=== PATIENT | female | born 1960 | race Caucasian/White ===

== ENCOUNTER 2018-02-14 13:21 | Inpatient (IN) | payer MEDICARE, OTHER ==
[~2018-02-14] VITALS: Ht 170.2 cm; Wt 73.0 kg
--- NOTE | 2018-02-14 14:30 | NUR ---
RN NOTE: PATIENT ARRIVED IN THE UNIT AT 1345. PATIENT CAME FROM [facility]. PATIENT ADMITTED HERE FOR PSYCHOSIS. PATIENT STATES SHE IS HOPELESS AND DEPRESSED, BUT DOES NOT HAVE SI/HI. PATIENT'S BELONGINGS WERE LOGGED AND IN CHART. PATIENT SIGNED ADMISSION PAPERS. SKIN ASSESSMENT COMPLETE AND CLEAR. PSYCHIATRIST NOTIFIED AND ORDERS IN. VICE PRESIDENT NETWORK NOTIFIED OF MEDICATION RECON. PATIENT ORIENTED TO UNIT POLICY AND PROCEDURES.
[2018-02-14] MEDS ORDERED: MAGNESIUM HYDROXIDE 30 ML UDC PO PRN (15:00)
[2018-02-14] MEDS ORDERED: TEMAZEPAM 7.5 MG CAPSULE PO PRN (15:00)
[2018-02-14] MEDS ORDERED: MAG HYDROX/AL HYDROX/SIMETH 30 ML UDC PO PRN (15:00)
[2018-02-14 16:00] VITALS: BP 134/70
[2018-02-14] MEDS ORDERED: MELO-107 PO (17:37)
[2018-02-14] MEDS ORDERED: QUET200T PO (17:37)
[2018-02-14] MEDS ORDERED: HYDR50CA5 PO (17:37)
[2018-02-14] MEDS ORDERED: DIVA-78 PO (17:37)
[2018-02-14] MEDS ORDERED: BUSP15TA3 PO (17:37)
[2018-02-14 20:16] VITALS: BP 86/54
[2018-02-14] MEDS ORDERED: ALBUTEROL FS 2.5 MG/3 ML VIAL.NEB NEB PRN (21:30)
[2018-02-14] MEDS ORDERED: IPRATROPIUM NEB FS 0.5 MG/2.5 ML AMPUL.NEB NEB PRN (21:30)
[2018-02-14] MEDS: LORAZEPAM 0.5 MG TABLET PO PRN (22:02)
[2018-02-14 23:00] VITALS: BP 105/65
[2018-02-15 08:00] VITALS: BP 112/77
[2018-02-15] MEDS: LORAZEPAM 0.5 MG TABLET PO PRN (09:58)
--- NOTE | 2018-02-15 09:58 | NUR ---
RN NOTES ADMINISTERED ATIVAN 0.5 MG PO PRN FOR ANXIETY, PARANOIA, V/S TAKEN STABLE BP- 112/77, P-71, CONTINUED MONITORING.
[2018-02-15] MEDS: DIVALPROEX SODIUM 500 MG TABLET.DR PO SCH ×2 (10:54→21:02)
[2018-02-15 11:02] LABS: ALBUMIN 3.4 g/dL (3.4-5.0); BILIRUBIN,TOTAL 0.4 mg/dL (0.2-1.0); CALCIUM, SERUM 9.2 mg/dL (8.5-10.1); CREATININE 0.8 mg/dL (0.6-1.3); POTASSIUM 4.7 mmol/L (3.5-5.1); TOTAL PROTEIN, SERUM 7.1 g/dL (6.4-8.2)
[2018-02-15 11:16] LABS: CHOLESTEROL 243 mg/dL (<200); HDL CHOLESTEROL 81 mg/dL (40-60); LDL 135 mg/dL (0-99); TRIGLYCERIDES 192 mg/dL (30-150)
--- NOTE | 2018-02-15 15:51 | NUR ---
BOB called the pt's sister, Kahty ([phone]), and was unable to leave a message on her voicemail.
--- NOTE | 2018-02-15 15:51 | NUR ---
Initial Discharge Plan: Pt is currently homeless but stated that she wants to go live with her sister, Kathy ([phone]), in [place] after she is discharged. SW will work with the pt and the MD regarding appropriate discharge planning. SW will form a safe and proper discharge.
[2018-02-15 16:00] VITALS: BP 111/82
[2018-02-15] MEDS: clonazePAM 0.5 MG TABLET PO PRN (16:02)
--- NOTE | 2018-02-15 16:02 | NUR ---
RN NOTES ADMINISTERED KLONOPIN 0.5 MG PO PRN FOR ANXIETY, AND TYLENOL 650 MG PO PRN FOR LOWER BACK PAIN 11/10, PER PATIENT REQUEST BP - 132/79, P-78, CONTINUED MONITORING.
[2018-02-15 20:02] VITALS: BP 85/54
[2018-02-15] MEDS: MIRTAZAPINE 15 MG TABLET PO SCH (21:02)
[2018-02-15] MEDS: QUETIAPINE FUMARATE 100 MG TABLET PO SCH (21:02)
[2018-02-15 22:30] VITALS: BP 108/67
[2018-02-16] MEDS: DIVALPROEX SODIUM 500 MG TABLET.DR PO SCH ×2 (08:54→21:31)
[2018-02-16] MEDS: clonazePAM 0.5 MG TABLET PO PRN (09:09)
--- NOTE | 2018-02-16 09:10 | NUR ---
GPS/RN-NOTES PATIENT REQUESTING FOR KLONOPIN, STATED" I NEED FOR MY ANXIETY. KLONOPIN 0.5MG P.O GIVEN PRN ORDER. WILL CONT. MONITORING FOR SAFETY AND BEHAVIOR.
--- NOTE | 2018-02-16 10:10 | NUR ---
GPS/RN-NOTES PATIENT IN THE DAY ROOM PARTICIPATING IN THE ACTIVITY GROUP,CALM AND COOPERATIVE. NO ACUTE DISTRESS NOTED.
[2018-02-16 16:17] VITALS: BP 97/55
[2018-02-16 20:00] VITALS: BP 105/72
[2018-02-16] MEDS: QUETIAPINE FUMARATE 100 MG TABLET PO SCH (21:31)
[2018-02-16] MEDS: MIRTAZAPINE 15 MG TABLET PO SCH (21:31)
--- NOTE | 2018-02-17 06:21 | NUR ---
GPS/RN PATIENT STILL SLEEPING AT THIS TIME, APPEAR CALM AND COMFORTABLE, BREATHING EVEN AND UNLABORED, ALL NEEDS ATTENDED AT THIS TIME. WILL CONTINUE TO MONITOR.
[2018-02-17 08:00] VITALS: BP 99/69
[2018-02-17] MEDS: DIVALPROEX SODIUM 500 MG TABLET.DR PO SCH ×2 (08:43→21:48)
[2018-02-17] MEDS: clonazePAM 0.5 MG TABLET PO PRN ×2 (08:52→14:11)
[2018-02-17] MEDS: ACETAMINOPHEN 325 MG TABLET PO PRN (08:52)
--- NOTE | 2018-02-17 08:52 | NUR ---
RN NOTES ADMINISTERED KLONOPIN 0.5 MG PO PRN FOR ANXIETY, AND TYLENOL 650 MG PO PRN FOR NECK PAIN 11/10 PER PATIENT REQUEST, V/S TAKEN BP-100/69, P-61, CONTINUED MONITORING.
--- NOTE | 2018-02-17 14:11 | NUR ---
RN NOTES ADMINISTERED KLONOPIN 0.5 MG PO PRN FOR ANXIETY, YELLING, V/S TAKEN STABLE BP- 100,67, P-78, CONTINUED MONITORING.
[2018-02-17 16:00] VITALS: BP 100/59
[2018-02-17] MEDS ORDERED: ZOLPIDEM TARTRATE 5 MG TABLET PO PRN (17:00)
[2018-02-17 20:00] VITALS: BP 106/49
[2018-02-17] MEDS: MIRTAZAPINE 15 MG TABLET PO SCH (21:48)
[2018-02-17] MEDS: QUETIAPINE FUMARATE 100 MG TABLET PO SCH (21:49)
[2018-02-18 08:00] VITALS: BP 100/59
[2018-02-18] MEDS: DIVALPROEX SODIUM 500 MG TABLET.DR PO SCH ×2 (08:19→20:18)
[2018-02-18] MEDS: clonazePAM 0.5 MG TABLET PO PRN ×2 (09:00→15:25)
--- NOTE | 2018-02-18 09:00 | NUR ---
GPS RN NOTE: RECEIVED PATIENT IN THE ROOM SHOWERED TODAY COMPLIANT WITH MEDICATIONS AT THIS TIME, FEELING ANXIOUS KLONOPIN 0.5 MG PO PRN GIVE,ALL NEEDS ATTENDED AND ANTICIPATED. WILL CONT. MONITORING Q15 MINS. FOR SAFETY AND BEHAVIOR. .
[2018-02-18 16:00] VITALS: BP 100/59
[2018-02-18 20:00] VITALS: BP 97/58
[2018-02-18] MEDS: ACETAMINOPHEN 325 MG TABLET PO PRN (20:18)
[2018-02-18] MEDS: QUETIAPINE FUMARATE 100 MG TABLET PO SCH (21:15)
[2018-02-18] MEDS: MIRTAZAPINE 15 MG TABLET PO SCH (21:15)
[2018-02-19 08:00] VITALS: BP 106/57
[2018-02-19] MEDS: DIVALPROEX SODIUM 500 MG TABLET.DR PO SCH ×2 (08:04→21:02)
[2018-02-19] MEDS: clonazePAM 0.5 MG TABLET PO PRN ×2 (08:08→14:21)
[2018-02-19] MEDS: ACETAMINOPHEN 325 MG TABLET PO PRN (08:09)
[2018-02-19 16:00] VITALS: BP 100/71
[2018-02-19 19:54] VITALS: BP 103/58
[2018-02-19] MEDS: MIRTAZAPINE 15 MG TABLET PO SCH (21:02)
[2018-02-19] MEDS: QUETIAPINE FUMARATE 100 MG TABLET PO SCH (21:02)
[2018-02-19 23:00] VITALS: BP 106/64
[2018-02-20] MEDS: clonazePAM 0.5 MG TABLET PO PRN ×3 (00:22→15:04)
[2018-02-20 08:00] VITALS: BP 92/58
--- NOTE | 2018-02-20 08:30 | NUR ---
GPS/RN PATIENT REPORTS BEING ANXIOUS AND RESTLESS, ADMINISTERED KLONOPIN 0.5 MG PER PATIENT REQUEST. WILL CONTINUE TO MONITOR.
[2018-02-20] MEDS: DIVALPROEX SODIUM 500 MG TABLET.DR PO SCH ×2 (08:31→21:34)
--- NOTE | 2018-02-20 15:04 | NUR ---
GPS/RN PATIENT REPORTS BEING ANXIOUS AND RESTLESS, ADMINISTERED KLONOPIN 0.5 MG PER PATIENT REQUEST. WILL CONTINUE TO MONITOR.
[2018-02-20 16:00] VITALS: BP 104/71
[2018-02-20 20:52] VITALS: BP 98/60
[2018-02-20] MEDS: MIRTAZAPINE 15 MG TABLET PO SCH (21:33)
[2018-02-20] MEDS: QUETIAPINE FUMARATE 100 MG TABLET PO SCH (21:33)
[2018-02-21 08:00] VITALS: BP 90/57
[2018-02-21] MEDS: DIVALPROEX SODIUM 500 MG TABLET.DR PO SCH (08:58)
[2018-02-21] MEDS: clonazePAM 0.5 MG TABLET PO PRN (09:04)
--- NOTE | 2018-02-21 09:04 | NUR ---
[id number]: GAVE KLONOPIN 1 MG PO DUE TO INCREASED ANXIETY UPON PT REQUEST AND WILL CONTINUE TO MONITOR FOR EFFECTIVENESS OF MEDICATION
--- NOTE | 2018-02-21 11:50 | NUR ---
[id number]: PT IS 57 YEARS OLD FEMALE DISCHARGE TO [facility] LOCATED AT [address] [place] [address]. [id number] IN STABLE CONDITION. COMPLIANT WITH MEDICATIONS, COOPERATIVE WITH TREATMENT PLANS. PT DENIES SI/HI AND INSTRUCTED TO GO TO THE CLOSEST ER IF DEVELOPING SI/HI. BEHAVIOR IMPROVED, PSYCHIATRIC TX PLANS MET, MEDICAL TX PLANS DEFERRED FOR CONTINUAL MONITORING. EDUCATED PT ABOUT AFTER CARE PLAN AND COPY PROVIDED. RETURNED PERSONAL BELONGINGS TO PT. MEDICATIONS RECONCILED WITH DR. MAYBERRY AND DR. RIVERA. REPORT GIVEN TO OREN AT [facility] FOR CONTINUITY OF CARE. PT SIGNED DISCHARGE PAPERWORK. SKIN ASSESSMENT DONE. PT LEFT THE UNIT VIA AMBULANCE.
--- NOTE | 2018-02-21 16:05 | NUR ---
BOB sent a referral to [facility] and Marybeth ([phone]) contacted the SW to state that she wanted to assess the pt first.
--- NOTE | 2018-02-21 16:06 | NUR ---
Marybeth ([phone]) from [facility] came to assess the pt with the SW being present.
--- NOTE | 2018-02-21 16:06 | NUR ---
BOB called Marybeth ([phone]) from [facility] and was informed that the pt was accepted to their facility and that they would bring her dog with them.
--- NOTE | 2018-02-21 16:07 | NUR ---
Discharge Note: Pt was discharged to [facility] ([facility]) located at [id number] [place] [address]; ([phone]). Pt was transported via [facility] (Trip #[id number]) at 12pm to Rm 409B. Pt did not want anyone to be contacted about her discharge and agreed to this placement because the facility stated that they would allow her dog. Upon discharge, the pt stated that she was in an uplifted mood and her affect appeared to be calm. Pt stated that she does not have any suicidal or homicidal ideation as well as auditory or visual hallucinations. Pt was provided with substance abuse referrals as well as smoking cessation referrals. Pt will be under the care of psychiatrist, Dr. Song, located at [address] [address], [place] [address]; and rn on site, Dr. Cruz, located at [address] [facility] [place] [address]; . Substance abuse referrals: [facility] [address] [place] [address] Tel. [facility] [address] [place] Provider Mental Health Treatment Tele-dermatology HIV Services Telemedicine Services [facility] [address] [place] [address] [facility] [address] [place] [address] Smoking Cessation Referrals: [facility] [id number] [facility] [phone]
== END 2018-02-21 11:50 | DRG 885 ==
LOC: GPS 13:21
PROVIDERS: ADMIT Psychiatry & Neurology Psychiatry; ATTEND Internal Medicine
DX: F31.89 Other bipolar disorder (principal); F23 Brief psychotic disorder; F10.10 Alcohol abuse, uncomplicated; F41.9 Anxiety disorder, unspecified; E78.5 Hyperlipidemia, unspecified; F17.210 Nicotine dependence, cigarettes, uncomplicated; F19.10 Other psychoactive substance abuse, uncomplicated; F25.9 Schizoaffective disorder, unspecified; Z59.0 Homelessness; Z91.5 Personal history of self-harm
CPT/HCPCS: 36415; 80053-TC; 80061-TC; 80164-TC; 87081-TC

== ENCOUNTER 2018-11-23 20:30 | Inpatient (IN) | payer MEDICARE, OTHER ==
[~2018-11-23] VITALS: Ht 170.2 cm; Wt 90.7 kg
[~2018-11-23 20:30] MED LIST: HYDR50CA5 PO; MELO-107 PO
--- NOTE | 2018-11-23 20:49 | NUR ---
PT JOSUÉ FROM [facility] FOR MEDICAL CLEARANCE. PT NOT PLACED ON HOLD. PT C/O SI, DENIES PLAN, HI, OR AUDITORY HALLUCINATIONS. PT AAOX4. RESPIRATIONS EVEN AND UNLABORED. SKIN INTACT. CALM AND COOPERATIVE. NO ACUTE DISTRESS NOTED AT THIS TIME
--- NOTE | 2018-11-23 20:50 | NUR ---
URINE COLLECTED AND SENT TO LAB
--- NOTE | 2018-11-23 20:55 | NUR ---
ER PA AT BEDSIDE FOR EVALUATION
[2018-11-23] MEDS ORDERED: HYDROCODONE/APAP 10/325MG 1 EA TABLET PO ONE (21:00)
[2018-11-23] MEDS ORDERED: HYDROCODONE/APAP 10/325MG 1 EA TABLET ONE (21:01)
--- NOTE | 2018-11-23 21:05 | NUR ---
PT ALSO C/O BILATERAL LEG PAIN. PER ER PA ORDER, WILL ADMINISTER NORCO PO X1 NOW
[2018-11-23 21:09] LABS: APPEARANCE,URINE Clear (CLEAR); BILIRUBIN,URINE Negative (NEGATIVE); BLOOD, URINE Trace-lysed Ery/uL (NEGATIVE); COLOR,URINE Yellow (YELLOW); KETONES,URINE Negative (NEGATIVE); LEUKOCYTE ESTERASE ,URINE Negative (NEGATIVE); NITRITE, URINE Negative (NEGATIVE); PH,URINE 5.5 (5.0-8.0); PROTEIN,URINE Negative (NEGATIVE); UGLUCOSE Negative (NEGATIVE); UROBILINOGEN,URINE 0.2 EU/dL (0.2)
[2018-11-23 21:12] LABS: BACTERIA,URINE None seen /HPF (None Seen); RBC,URINE 0-2 /HPF (0-2); SQUAMOUS EPITHELIAL CELL,UR None Seen /HPF (None Seen); WBC,URINE NONE SEEN /HPF (0-3)
[2018-11-23 22:28] LABS: HEMOGLOBIN 11.2 g/dL (11.5-14.8); WHITE BLOOD COUNT (AUTO) 6.6 K/uL (4.3-11.0)
[2018-11-23 22:31] LABS: BASOPHILS # (AUTO) 0.1 /CMM (0.0-0.2); BASOPHILS % (AUTO) 1.1 % (0.0-2.0); EOSINOPHILS % (AUTO) 2.9 % (0.0-6.0); HEMATOCRIT 33 % (33-45); LYMPHOCYTES # (AUTO) 2.8 /CMM (0.8-4.8); MEAN CORPUSCULAR HGB CONC 34 g/dl (31.0-36.0); MEAN CORPUSCULAR VOLUME 92 fL (82-100); MONOCYTES # (AUTO) 0.7 /CMM (0.1-1.30); MONOCYTES % (AUTO) 11.1 % (2.0-12.0); NEUTROPHILS # (AUTO) 2.8 /CMM (1.8-8.9); NEUTROPHILS % (AUTO) 41.9 % (43.0-81.0); PLATELET COUNT (AUTO) 232 /CMM (150-450); RED BLOOD CELL COUNT(AUTO) 3.54 MIL/uL (4.0-5.2)
[2018-11-23 22:38] LABS: CALCIUM, SERUM 8.2 mg/dL (8.5-10.1); CARBON DIOXIDE 25 mmol/L (21-32); CHLORIDE 106 mmol/L (98-107); CREATININE 0.7 mg/dL (0.6-1.3); GLUCOSE 100 mg/dL (74-106); POTASSIUM 4.4 mmol/L (3.5-5.1); SODIUM SERUM 139 mmol/L (136-145); UREA NITROGEN, BLOOD 13 mg/dL (7-18)
[2018-11-23 22:43] LABS: ACETAMINOPHEN 2 ug/ml (10-30); ALANINE AMINOTRANSFERASE 41 U/L (12-78); ALCOHOL, BLOOD < 3 mg/dL (0-0); ALKALINE PHOSPHATASE 75 U/L (46-116); ASPARTATE AMINOTRANSFERASE 33 U/L (15-37); BILIRUBIN,TOTAL 0.2 mg/dL (0.2-1.0); SALICYLATE 2.4 mg/dL (2.8-20.0); TOTAL PROTEIN, SERUM 6.5 g/dL (6.4-8.2)
--- NOTE | 2018-11-23 22:50 | NUR ---
CALLED SHAKE SPLITTER RELIGIOUS EDUCATOR ASMITA FOR PSYCH EVAL
--- NOTE | 2018-11-23 23:29 | NUR ---
LEFT VOICEMAIL FOR ASMITA
--- NOTE | 2018-11-24 01:16 | NUR ---
ART, OUTREACH DIRECTOR AT BEDSIDE FOR EVALUATION
--- NOTE | 2018-11-24 02:28 | NUR ---
GAVE REPORT TO CALLI SOLORZANO FOR BRICE
--- NOTE | 2018-11-24 02:44 | NUR ---
PT TRANSFERRED TO GPS 220-B VIA WHEELCHAIR
[2018-11-24] MEDS ORDERED: MAG HYDROX/AL HYDROX/SIMETH 30 ML UDC PO PRN (03:00)
[2018-11-24] MEDS ORDERED: ACETAMINOPHEN 325 MG TABLET PO PRN (03:00)
[2018-11-24] MEDS ORDERED: MAGNESIUM HYDROXIDE 30 ML UDC PO PRN (03:00)
[2018-11-24] MEDS ORDERED: ZOLPIDEM TARTRATE 5 MG TABLET PO PRN (03:00)
--- NOTE | 2018-11-24 03:00 | NUR ---
BP ON ADMISSION 129/104, 83, 97.8, 19, 99% ON ROOM AIR LATEST BP AT 0645 123/63, HR 74.
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
--- NOTE | 2018-11-24 04:00 | NUR ---
ATIVAN 1 MG GIVEN FOR ANXIETY PER HER REQUEST
[2018-11-24] MEDS: LORAZEPAM 0.5 MG TABLET PO PRN ×2 (04:09→12:42)
--- NOTE | 2018-11-24 06:56 | NUR ---
CALLED SISTER DELVIN ABOUT ADMISSION, NO ANSWER, LEFT A MESSAGE VIA ANSWERING MACHINE
--- NOTE | 2018-11-24 06:57 | NUR ---
PAGED. LINDA SANON: RE: MED RECONCILIATION. PLEASE FOLLOW-UP
[2018-11-24 08:00] VITALS: BP 126/68
[2018-11-24] MEDS ORDERED: ZOLP5TAB8 PO (09:15)
[2018-11-24] MEDS ORDERED: BUSP15TA3 PO (09:15)
[2018-11-24] MEDS ORDERED: DIVA-78 PO (09:15)
[2018-11-24] MEDS ORDERED: ESTR1TAB17 PO (09:15)
[2018-11-24] MEDS ORDERED: DICL75TA5 PO (09:15)
[2018-11-24] MEDS ORDERED: PROP20TA19 PO (09:15)
[2018-11-24] MEDS ORDERED: QUET25TA PO (09:15)
[2018-11-24] MEDS ORDERED: CLON0.5T12 PO (09:16)
[2018-11-24] MEDS ORDERED: MELO-107 PO (09:16)
[2018-11-24] MEDS ORDERED: HYDR-4384 PO (09:16)
[2018-11-24] MEDS ORDERED: LORA0.5T PO (09:16)
[2018-11-24] MEDS: DIVALPROEX SODIUM 500 MG TABLET.DR PO SCH ×2 (11:19→21:12)
--- NOTE | 2018-11-24 12:45 | NUR ---
GPS/RN-NOTES PATIENT REQUESTING ATIVAN STATED" I NEED MY ATIVAN FOR MY ANXIETY". ATIVAN 1MG P.O GIVEN PRN ORDER. WILL CONT. MONITORING FOR SAFETY AND BEHAVIOR.
--- NOTE | 2018-11-24 15:15 | NUR ---
Group note: SW prompted the pt to join group therapy but she stated that she does not feel comfortable yet.
[2018-11-24] MEDS: LIDOCAINE 5% (PATCH) 1 EA PATCH TP SCH (15:36)
[2018-11-24 16:00] VITALS: BP 129/69
[2018-11-24] MEDS: PROPRANOLOL HCL 10 MG TABLET PO SCH (17:02)
--- NOTE | 2018-11-24 19:42 | NUR ---
RN NOTES: UPON ENDORSEMENT SHE IS CLAIMING SHE IS HAVING MENSTRUATION AND SHE IS ALREADY ON MENOPAUSE STAGE, GIVEN SANITARY PAD AND WILL BE MONITORED, SHE REQUEST FOR SNACK, AMBULATORY.STEADY GAIT.
[2018-11-24 20:00] VITALS: BP 105/61
[2018-11-24] MEDS: QUETIAPINE FUMARATE 100 MG TABLET PO SCH (21:12)
[2018-11-24] MEDS: MIRTAZAPINE 15 MG TABLET PO SCH (21:12)
--- NOTE | 2018-11-25 06:59 | NUR ---
RN NOTES: -AWAKE AT 0600, AGREED TO TAKE PICTURE ON HER REDNESS IN THE RIGHT ARM,PHOTO TAKEN AND PLACE IN THE CHART, SHE SHOWED TO RN THAT SHE HAD SOME SPOTTING ON HER SANITARY PAD, WILL ENDORSE TO CONTINUE MONITORING AND REFER TO PMD NEEDED. -SHE WAS UPSET WHEN SHE WENT TO THE BATHROOM, SHE HAD ARGUMENT WITH HER ROOM MATE, THEY YELL TO EACH OTHER, SHE REQUEST FOR ROOM CHANGE, IN-CHARGE WAS NOTIFIED, AGREED TO MOVE HER FROM 220A TO 219A. PAPER AND T-SHIRT TRANSFERRED TO 219A.
[2018-11-25 08:00] VITALS: BP 115/68
[2018-11-25] MEDS: PROPRANOLOL HCL 10 MG TABLET PO SCH ×2 (09:00→16:50)
[2018-11-25] MEDS: ESTRADIOL 1 MG TABLET PO SCH (09:44)
[2018-11-25] MEDS: MELOXICAM 7.5 MG TABLET PO SCH (09:44)
[2018-11-25] MEDS: DIVALPROEX SODIUM 500 MG TABLET.DR PO SCH ×2 (09:44→20:52)
[2018-11-25 10:38] LABS: CHOLESTEROL 253 mg/dL (<200); HDL CHOLESTEROL 76 mg/dL (40-60); LDL 133 mg/dL (0-99); TRIGLYCERIDES 253 mg/dL (30-150)
[2018-11-25 10:42] LABS: BASOPHILS % (AUTO) 0.7 % (0.0-2.0); EOSINOPHILS % (AUTO) 2.7 % (0.0-6.0); HEMATOCRIT 37 % (33-45); HEMOGLOBIN 12.4 g/dL (11.5-14.8); LYMPHOCYTES # (AUTO) 1.9 /CMM (0.8-4.8); LYMPHOCYTES % (AUTO) 34.2 % (20.0-44.0); MEAN CORPUSCULAR HGB CONC 34 g/dl (31.0-36.0); MEAN CORPUSCULAR VOLUME 92 fL (82-100); MONOCYTES # (AUTO) 0.6 /CMM (0.1-1.30); MONOCYTES % (AUTO) 10.7 % (2.0-12.0); NEUTROPHILS % (AUTO) 51.7 % (43.0-81.0); PLATELET COUNT (AUTO) 242 /CMM (150-450); RED BLOOD CELL COUNT(AUTO) 4.01 MIL/uL (4.0-5.2); WHITE BLOOD COUNT (AUTO) 5.7 K/uL (4.3-11.0)
[2018-11-25 10:44] LABS: BILIRUBIN,TOTAL 0.2 mg/dL (0.2-1.0); CREATININE 0.8 mg/dL (0.6-1.3); POTASSIUM 4.4 mmol/L (3.5-5.1); TOTAL PROTEIN, SERUM 6.8 g/dL (6.4-8.2)
--- NOTE | 2018-11-25 11:40 | NUR ---
Leanne UMANZOR RN LACTATION CONSULTANT IN TO SEE PT.
[2018-11-25] MEDS: LORAZEPAM 0.5 MG TABLET PO PRN (13:22)
--- NOTE | 2018-11-25 13:23 | NUR ---
MEDICATED FOR NERVES WITH ATIVAN 1 MG PO.
--- NOTE | 2018-11-25 14:43 | NUR ---
DR. PARMAR IN TO SEE PT.
[2018-11-25 16:00] VITALS: BP 100/55
[2018-11-25] MEDS: LIDOCAINE 5% (PATCH) 1 EA PATCH TP SCH (16:26)
[2018-11-25] MEDS: HYDROCODONE/APAP 5/325MG 1 EACH TABLET PO PRN (16:36)
[2018-11-25 20:44] VITALS: BP 113/72
[2018-11-25] MEDS: QUETIAPINE FUMARATE 100 MG TABLET PO SCH ×2 (21:13→22:00)
[2018-11-25] MEDS: ATORVASTATIN 10 MG TABLET PO SCH (21:13)
[2018-11-25] MEDS: MIRTAZAPINE 15 MG TABLET PO SCH (21:13)
--- NOTE | 2018-11-26 02:29 | NUR ---
GPS-RN PATIENT REFUSED SCHEDULED SEROQUEL FOR TONIGHT. DESPITE OF EDUCATION ON RISKS AND BENEFITS BUT PT STILL REFUSED.
[2018-11-26 08:00] VITALS: BP 105/60
[2018-11-26] MEDS: MELOXICAM 7.5 MG TABLET PO SCH (08:57)
[2018-11-26] MEDS: DIVALPROEX SODIUM 500 MG TABLET.DR PO SCH ×2 (08:57→21:04)
[2018-11-26] MEDS: ESTRADIOL 1 MG TABLET PO SCH (08:57)
[2018-11-26] MEDS: PROPRANOLOL HCL 10 MG TABLET PO SCH ×2 (09:00→16:45)
[2018-11-26] MEDS: HYDROCODONE/APAP 5/325MG 1 EACH TABLET PO PRN ×2 (09:03→21:22)
[2018-11-26] MEDS: LORAZEPAM 0.5 MG TABLET PO PRN (11:11)
[2018-11-26] MEDS ORDERED: ZOLPIDEM TARTRATE 5 MG TABLET PO PRN (11:30)
[2018-11-26 15:02] LABS: APPEARANCE,URINE CLEAR (CLEAR); BILIRUBIN,URINE NEGATIVE (NEGATIVE); BLOOD, URINE 3+ Ery/uL (NEGATIVE); COLOR,URINE YELLOW (YELLOW); KETONES,URINE NEGATIVE (NEGATIVE); LEUKOCYTE ESTERASE ,URINE NEGATIVE (NEGATIVE); NITRITE, URINE NEGATIVE (NEGATIVE); PROTEIN,URINE NEGATIVE (NEGATIVE); UGLUCOSE NEGATIVE (NEGATIVE); UROBILINOGEN,URINE 0.2 EU/dL (0.2)
[2018-11-26] MEDS: LIDOCAINE 5% (PATCH) 1 EA PATCH TP SCH (15:02)
[2018-11-26 15:40] LABS: WBC,URINE 0-2 /HPF (0-3)
[2018-11-26 15:41] LABS: BACTERIA,URINE 1+ /HPF (None Seen); HYALINE CASTS, URINE Rare /LPF (None Seen); MUCUS,URINE Few /LPF (None Seen)
[2018-11-26 16:00] VITALS: BP 107/75
--- NOTE | 2018-11-26 18:07 | NUR ---
RN GPS NOTES PT AWAKE, IN BED, ALERT AND ORIENTED, DENIES PAIN, NOT IN DISTRESS, TOLERATES CURRENT DIET, NEEDS ATTENDED, SAFETY PRECAUTIONS OBSERVED.
[2018-11-26 20:16] VITALS: BP 108/70
[2018-11-26] MEDS: ATORVASTATIN 10 MG TABLET PO SCH (21:04)
[2018-11-26] MEDS: QUETIAPINE FUMARATE 100 MG TABLET PO SCH (21:05)
[2018-11-27 08:00] VITALS: BP 100/51
[2018-11-27] MEDS: DIVALPROEX SODIUM 500 MG TABLET.DR PO SCH ×2 (08:41→21:30)
[2018-11-27] MEDS: ESTRADIOL 1 MG TABLET PO SCH (08:41)
[2018-11-27] MEDS: MELOXICAM 7.5 MG TABLET PO SCH (08:41)
[2018-11-27] MEDS: PROPRANOLOL HCL 10 MG TABLET PO SCH ×2 (08:56→17:00)
[2018-11-27] MEDS: LORAZEPAM 0.5 MG TABLET PO PRN (08:59)
--- NOTE | 2018-11-27 08:59 | NUR ---
GPS/RN-NOTES PATIENT REQUESTING ATIVAN STATED" I NEED MY ATIVAN FOR MY ANXIETY". ATIVAN 1MG P.O GIVEN PRN ORDER. WILL CONT. MONITORING FOR SAFETY AND BEHAVIOR.
--- NOTE | 2018-11-27 10:00 | NUR ---
GPS/RN-NOTES PATIENT LAYING IN BED CALM NO ACUTE DISTRESS NOTED.
[2018-11-27] MEDS: HYDROCODONE/APAP 5/325MG 1 EACH TABLET PO PRN ×2 (12:35→21:31)
--- NOTE | 2018-11-27 12:36 | NUR ---
GPS/RN-NOTES PATIENT REQUESTING FOR NORCO FOR 810 RIGHT KNEE PAIN. NORCO 5/325MG 1 TAB. GIVEN PRN ORDER WILL CONT. MONITORING FOR SAFETY .
--- NOTE | 2018-11-27 12:52 | NUR ---
Initial Discharge Plan: Pt currently resides with others at a house located at [address] [place] [address]; ([phone]). Per pt, she would like to return to her home or be set up with an Independent Living in the [place]. SW will work with the pt and the MD regarding appropriate discharge planning. SW will form a safe and proper discharge.
[2018-11-27] MEDS: LIDOCAINE 5% (PATCH) 1 EA PATCH TP SCH (15:28)
[2018-11-27 16:00] VITALS: BP 108/55
--- NOTE | 2018-11-27 19:45 | NUR ---
GPS RN NOTE: PATIENT RESTING IN BED, NO ACUTE DISTRESS NOTED. BREATHING EVEN AND UNLABORED, NO SOB NOTED. PATIENT CALM AND COOPERATIVE AT THIS TIME. WILL CONTINUE TO MONITOR.
[2018-11-27 20:24] VITALS: BP 105/65
[2018-11-27] MEDS: ATORVASTATIN 10 MG TABLET PO SCH (21:30)
[2018-11-27] MEDS: QUETIAPINE FUMARATE 100 MG TABLET PO SCH (21:31)
--- NOTE | 2018-11-27 21:40 | NUR ---
GPS RN NOTE: PATIENT COMPLAINS OF RIGHT KNEE PAIN 01/10, NORCO 5/325MG 1 TAB ORAL GIVEN PER MD ORDER. WILL CONTINUE TO MONITOR.
[2018-11-28 08:00] VITALS: BP 105/59
[2018-11-28 08:52] VITALS: BP 105/59
[2018-11-28] MEDS: LIDOCAINE 5% (PATCH) 1 EA PATCH TP SCH (08:52)
[2018-11-28] MEDS: ESTRADIOL 1 MG TABLET PO SCH (08:52)
[2018-11-28] MEDS: PROPRANOLOL HCL 10 MG TABLET PO SCH (08:52)
[2018-11-28] MEDS: DIVALPROEX SODIUM 500 MG TABLET.DR PO SCH (08:52)
[2018-11-28] MEDS: MELOXICAM 7.5 MG TABLET PO SCH (08:53)
[2018-11-28] MEDS: LORAZEPAM 0.5 MG TABLET PO PRN (11:22)
--- NOTE | 2018-11-28 12:27 | NUR ---
GPS/RN PT DISCHARGED HOME, HOLD DISCONTINUED. PRESCRIPTIONS, EXIT CARE INSTRUCTIONS PROVIDED. NO SI OR HI AT THE TIME OF D/C. PT REFUSED PICTURES TAKEN BEING ANXIOUS TO GO. TAP CARD AND TICKET TO [employer] ([place]) ARRANGED BY BOB. PROPERTY RETURNED. ID BAND REMOVED. PT IS AMBULATORY, VSS.
--- NOTE | 2018-11-28 15:33 | NUR ---
Discharge Note: Pt was discharged back home to [address] [place] [address]; ([phone]). Pt was given a TAP card to get to the [facility] which pt has a ticket to take her to [place]. Pt was discharged around 1PM. Upon discharge, the pt appeared to be in a euthymic mood and presented with a calm affect. Pt denied both suicidal and homicidal ideation as well as auditory and visual hallucinations. Pt was also provided with a placement agency brochure to help set her up with an independent living. Pt will be under the care of [facility] located at [address] [place] [address]; , fax: , for psychiatric purposes. Pt will be under the care of her audograph operator, Dr. Amy Ogden, [place] at [address] [place] [address]; .
== END 2018-11-28 12:30 | disposition home or self-care (01) | DRG 885 ==
LOC: ER 20:32 → GPS 11-24 02:21
PROVIDERS: ADMIT Psychiatry & Neurology Psychiatry; ATTEND Nurse Practitioner Acute Care
DX: F31.64 Bipolar disorder, current episode mixed, severe, with psychotic features (principal); R45.851 Suicidal ideations; E44.0 Moderate protein-calorie malnutrition; F29 Unspecified psychosis not due to a substance or known physiological condition; Z88.0 Allergy status to penicillin; G89.29 Other chronic pain; D63.8 Anemia in other chronic diseases classified elsewhere; E66.9 Obesity, unspecified; Z68.31 Body mass index [BMI] 31.0-31.9, adult; Z79.899 Other long term (current) drug therapy
CPT/HCPCS: 36415; 80048-TC; 80053-TC; 80061-TC; 80076-TC; 80305; 81000-TC; 85025-TC; 87081-TC; 87086-TC; G0480

== ENCOUNTER 2018-12-13 17:04 | Inpatient (IN) | payer MEDICARE, OTHER ==
[~2018-12-13] VITALS: Ht 170.2 cm; Wt 90.7 kg
[~2018-12-13 17:04] MED LIST changes: +BUSP15TA3 PO; +CLON0.5T12 PO; +DICL75TA5 PO; +DIVA-78 PO; +ESTR1TAB17 PO; +HYDR-4384 PO; +LORA0.5T PO; +PROP20TA19 PO; +QUET25TA PO; +ZOLP5TAB8 PO
--- NOTE | 2018-12-13 17:45 | NUR ---
CAME IN FOR AUDITORY AND VISUAL HALLUCINATIONS, SUICIDAL WITH NO PLAN. TO ER BED 5, HOOKED TO MONITOR, AWITING MD CHANCE.
--- NOTE | 2018-12-13 17:46 | NUR ---
ELECTRONIC FUNDS TRANSFER COORDINATOR DEGRASSE AT BEDSIDE
[2018-12-13] MEDS ORDERED: OLANZAPINE 5 MG TABLET PO ONE (18:00)
[2018-12-13] MEDS ORDERED: LORAZEPAM 1 MG TABLET PO ONE (18:00)
[2018-12-13 18:04] LABS: BASOPHILS # (AUTO) 0.1 /CMM (0.0-0.2); BASOPHILS % (AUTO) 0.6 % (0.0-2.0); EOSINOPHILS % (AUTO) 0.4 % (0.0-6.0); HEMATOCRIT 36 % (33-45); HEMOGLOBIN 12.2 g/dL (11.5-14.8); LYMPHOCYTES # (AUTO) 2.1 /CMM (0.8-4.8); LYMPHOCYTES % (AUTO) 20.6 % (20.0-44.0); MEAN CORPUSCULAR HGB CONC 34 g/dl (31.0-36.0); MEAN CORPUSCULAR VOLUME 92 fL (82-100); MONOCYTES # (AUTO) 0.9 /CMM (0.1-1.30); MONOCYTES % (AUTO) 9.1 % (2.0-12.0); NEUTROPHILS # (AUTO) 7.1 /CMM (1.8-8.9); NEUTROPHILS % (AUTO) 69.3 % (43.0-81.0); PLATELET COUNT (AUTO) 289 /CMM (150-450); RED BLOOD CELL COUNT(AUTO) 3.92 MIL/uL (4.0-5.2); WHITE BLOOD COUNT (AUTO) 10.3 K/uL (4.3-11.0)
[2018-12-13 18:14] LABS: CALCIUM, SERUM 8.2 mg/dL (8.5-10.1); CARBON DIOXIDE 24 mmol/L (21-32); CHLORIDE 101 mmol/L (98-107); CREATININE 0.7 mg/dL (0.6-1.3); GLUCOSE 101 mg/dL (74-106); POTASSIUM 3.6 mmol/L (3.5-5.1); SODIUM SERUM 136 mmol/L (136-145); UREA NITROGEN, BLOOD 8 mg/dL (7-18)
[2018-12-13 18:18] LABS: ALANINE AMINOTRANSFERASE 26 U/L (12-78); ALBUMIN 3.7 g/dL (3.4-5.0); ALCOHOL, BLOOD < 3 mg/dL (0-0); ALKALINE PHOSPHATASE 83 U/L (46-116); ASPARTATE AMINOTRANSFERASE 23 U/L (15-37); BILIRUBIN,DIRECT 0.1 mg/dL (0.0-0.2); BILIRUBIN,TOTAL 0.4 mg/dL (0.2-1.0); TOTAL PROTEIN, SERUM 7.5 g/dL (6.4-8.2)
[2018-12-13] MEDS ORDERED: LORA1TAB PO (18:21)
[2018-12-13] MEDS ORDERED: HYDR-3024 PO (18:21)
[2018-12-13] MEDS ORDERED: ATOR20TA PO (18:21)
[2018-12-13] MEDS ORDERED: BUSP30TA2 PO (18:21)
[2018-12-13] MEDS ORDERED: LORAZEPAM 1 MG TABLET ONE (18:25)
[2018-12-13] MEDS ORDERED: OLANZAPINE 5 MG TABLET ONE (18:26)
--- NOTE | 2018-12-13 18:38 | NUR ---
URINE SAMPLE SENT TO LAB
[2018-12-13 18:51] LABS: APPEARANCE,URINE Clear (CLEAR); BILIRUBIN,URINE Negative (NEGATIVE); BLOOD, URINE Negative Ery/uL (NEGATIVE); COLOR,URINE Yellow (YELLOW); KETONES,URINE Negative (NEGATIVE); LEUKOCYTE ESTERASE ,URINE Negative (NEGATIVE); NITRITE, URINE Negative (NEGATIVE); PROTEIN,URINE Negative (NEGATIVE); UGLUCOSE Negative (NEGATIVE); UROBILINOGEN,URINE 0.2 EU/dL (0.2)
[2018-12-13 19:02] LABS: ACETAMINOPHEN < 5 ug/ml (10-30); SALICYLATE 1.6 mg/dL (2.8-20.0)
--- NOTE | 2018-12-13 19:16 | NUR ---
nannette drake Rn tooth polisher at bedside to eval pt. pt calm and cooperative at this time.
--- NOTE | 2018-12-13 19:16 | NUR ---
REPORT GIVEN TO ED RN FOR BRICE
--- NOTE | 2018-12-13 20:28 | NUR ---
REPORT CALLED TO ROSELINE HERNANDEZ.
[2018-12-13 20:45] VITALS: BP 150/90
--- NOTE | 2018-12-13 21:00 | NUR ---
GPS SPECIAL MACHINE OPERATOR NOTES: ADMITTED A 58 YO FEMALE FROM HOME ON 5150 HOLD FOR DANGER TO SELF. PER HOLD PATIENT IS HEARING VOICES TELLING HER TO KILL HERSELF. IT IS FURTHER STATED IN THE HOLD THAT SHE HAS A SPECIFIC PLAN OF KILLING HERSELF BY OVERDOSING ON HER MEDICATIONS. PATIENT WAS PREVIOUSLY ADMITTED HERE AT [facility] LAST MONTH. SHE WILL BE UNDER THE CARE OF DR. HERNANDEZ AND MJ SANON ,ONION TIER FOR [employer] [facility]. PATIENT THEN BROUGHT INTO THE ROOM. UPON FACE TO FACE ASSESSMENT, PATIENT PRESENTS ALERT AND ORIENTED X3, APPEARS UNKEMPT, DEPRESSED, SAD, ANXIOUS, LABILE,UNPREDICTABLE, ADMITS TO HAVING AUDITORY HALLUCINATIONS TELLING HER TO KILL HERSELF, PATIENT IS ALSO AMBULATORY. REALITY ORIENTATION DONE.PATIENT MEETS CRITERIA FOR 5150. UNIT RULES, POLICIES, PROCEDURES, DOCTORS AND STAFF ORIENTATION DONE. Q15 MIN CHECKS INITIATED. CARE PLAN STARTED. PATIENT AGREED WITH NURSE THAT SHE'LL REPORT IF AND WHEN SHE STARTS TO HALLUCINATE AGAIN. BELONGINGS AND CONTRABAND CHECKED BY JESI. SKIN AND BODY ASSESSMENT DONE, PATIENT DOES NOT HAVE ANY ACTIVE SKIN ISSUES OF THIS TIME, SACRAL AREA IS CLEAR OF REDNESS. PATIENT SIGNED ALL ADMISSION PAPERS. WILL CALL FAMILY/SIGNIFICANT OTHER IN THE MORNING TO NOTIFY OF HER ADMISSION. ROOM SAFETY CHECK. PROVIDED PATIENT WITH HER CARE KIT, ADVISED OF THE HOLD, PATIENT'S RIGHTS DISCUSSED, GUIDE TO PRESCRIPTION MEDICATIONS PROVIDED. WILL MONITOR PATIENT FOR MOOD, SAFETY AND BEHAVIOR. WILL ENDORSE PATIENT TO DAY SHIFT NURSE.
[2018-12-13] MEDS ORDERED: MAGNESIUM HYDROXIDE 30 ML UDC PO PRN (22:00)
[2018-12-13] MEDS ORDERED: MAG HYDROX/AL HYDROX/SIMETH 30 ML UDC PO PRN (22:00)
[2018-12-13] MEDS ORDERED: LORAZEPAM 1 MG TABLET PO PRN (22:00)
[2018-12-13 22:55] VITALS: BP 150/90
--- NOTE | 2018-12-14 06:28 | NUR ---
GPS RN NOTES: PATIENT ASKED THE NURSE NOT TO CALL HER NEXT OF KIN, PER PATIENT' "SHE KNEW I'D BE COMING HERE, BECAUSE SHE KNEW MY WHOLE TRIP OF TAKING TH BUS AND THE TRAIN TO COME OVER" "YOU ONLY CALL HER WHEN SOMETHING ELSE HAPPENS TO ME". NOTED. WILL INFORM THE DAY SHIFT NURSE.
[2018-12-14] MEDS: ACETAMINOPHEN 325 MG TABLET PO PRN (07:01)
--- NOTE | 2018-12-14 07:02 | NUR ---
GPS RN NOTES: COMPLAINED OF TOOTH PAIN, TYLENOL 650 MG GIVEN PO PER PATIENT'S REQUEST. WILL MONITOR. WILL ENDORSE TO NEXT SHIFT NURSE.
[2018-12-14 08:00] VITALS: BP 128/91
[2018-12-14] MEDS: ESTRADIOL 1 MG TABLET PO SCH (08:22)
[2018-12-14] MEDS ORDERED: DIVALPROEX SODIUM 500 MG TABLET.DR PO SCH (09:00)
--- NOTE | 2018-12-14 10:51 | NUR ---
Psychosocial Attestation Note: I, Karin Bowser MSW, attest to the patient�s previous psychosocial information dated on 11/27/18. Update On Events leading to Admission and Discharge Plan: Pt has returned to the geropsychiatric unit of the hospital within one month of her previous discharge date (11/28/18). Per hold, the pt presented herself in the ER from home complaining about the voices telling her to kill herself. Pt female lives alone and was unable to present a viable safety plan. Pt stated, �I hear voices telling me to kill myself.� The pt also stated that she had a plan to overdose on her medications. The pt appeared to be oriented x4 (time, place, self and situation). The pt appeared to be in a depressed mood and presented with a flat affect. Pt appeared to be ambulatory with a steady gait. Pt appeared to be well groomed and appropriately dressed. SW will work with the pt and the MD regarding appropriate discharge planning. Pt stated that she may want a care home facility placement. SW will form a safe and proper discharge.
--- NOTE | 2018-12-14 10:57 | NUR ---
GPS/RN-NOTES DR. MENDEZ SEEN THE PATIENT AND RECEIVED VERBAL ORDER FOR NORCO 5/325MG 1 TAB. P.O Q6HR PRN FOR AND PT EVAL FOR RIGHT KNEE PAIN. NOTED AND CARRIED OUT.
[2018-12-14] MEDS: DIVALPROEX SODIUM 500 MG TABLET.DR PO SCH ×2 (11:13→20:31)
[2018-12-14] MEDS: OLANZAPINE 5 MG TABLET PO SCH ×2 (11:13→16:35)
[2018-12-14] MEDS: hydrOXYzine PAMOATE 25 MG CAPSULE PO PRN (11:13)
[2018-12-14] MEDS: busPIRone 5 MG TABLET PO SCH ×2 (12:38→16:35)
--- NOTE | 2018-12-14 15:35 | NUR ---
Group Note: SW encouraged pt to attend group therapy on 12/14/18 at 2pm discussing depression but the pt was asleep in her room and stated that she would join later but she did not.
[2018-12-14 16:00] VITALS: BP 112/74
[2018-12-14] MEDS: HYDROCODONE/APAP 5/325MG 1 EACH TABLET PO PRN (16:37)
--- NOTE | 2018-12-14 16:38 | NUR ---
GPS/RN-NOTES PATIENT C/O GENERALIZE BODY PAIN REQUESTING FOR NORCO. NORCO 5/325MG 1 TAB P.O GIVEN PRN ORDER. WILL CONT. MONITORING.
[2018-12-14] MEDS: ATORVASTATIN 10 MG TABLET PO SCH (21:16)
[2018-12-14] MEDS: ZOLPIDEM TARTRATE 5 MG TABLET PO PRN (21:16)
[2018-12-15 05:40] VITALS: BP 115/65
[2018-12-15 07:23] LABS: BASOPHILS % (AUTO) 0.6 % (0.0-2.0); EOSINOPHILS % (AUTO) 3.2 % (0.0-6.0); HEMATOCRIT 36 % (33-45); HEMOGLOBIN 11.9 g/dL (11.5-14.8); LYMPHOCYTES # (AUTO) 2.6 /CMM (0.8-4.8); LYMPHOCYTES % (AUTO) 45.5 % (20.0-44.0); MEAN CORPUSCULAR HGB CONC 33 g/dl (31.0-36.0); MEAN CORPUSCULAR VOLUME 94 fL (82-100); MONOCYTES # (AUTO) 0.5 /CMM (0.1-1.30); MONOCYTES % (AUTO) 8.4 % (2.0-12.0); NEUTROPHILS # (AUTO) 2.4 /CMM (1.8-8.9); NEUTROPHILS % (AUTO) 42.3 % (43.0-81.0); PLATELET COUNT (AUTO) 255 /CMM (150-450); RED BLOOD CELL COUNT(AUTO) 3.88 MIL/uL (4.0-5.2); WHITE BLOOD COUNT (AUTO) 5.7 K/uL (4.3-11.0)
[2018-12-15 07:51] LABS: BILIRUBIN,TOTAL 0.3 mg/dL (0.2-1.0); CALCIUM, SERUM 8.7 mg/dL (8.5-10.1); CREATININE 0.6 mg/dL (0.6-1.3); POTASSIUM 4.5 mmol/L (3.5-5.1); TOTAL PROTEIN, SERUM 6.5 g/dL (6.4-8.2)
[2018-12-15 08:00] VITALS: BP 106/69
[2018-12-15] MEDS: DIVALPROEX SODIUM 500 MG TABLET.DR PO SCH ×2 (08:21→22:06)
[2018-12-15] MEDS: ESTRADIOL 1 MG TABLET PO SCH (08:22)
[2018-12-15] MEDS: OLANZAPINE 5 MG TABLET PO SCH ×2 (08:22→17:00)
[2018-12-15] MEDS: busPIRone 5 MG TABLET PO SCH ×3 (08:23→16:39)
[2018-12-15 16:00] VITALS: BP 105/64
[2018-12-15] MEDS: HYDROCODONE/APAP 5/325MG 1 EACH TABLET PO PRN (16:40)
--- NOTE | 2018-12-15 17:19 | NUR ---
PT. REFUSED TO TAKE THE ZYPREXA PO AND SAYING IT HAS A BAD EFFECT IN HER, IT WILL MAKE HER ANGRY. PAGE DR. HERNANDEZ AND AWAITING FOR THE CALL BACK.
[2018-12-15 20:00] VITALS: BP 109/64
[2018-12-15] MEDS: ATORVASTATIN 10 MG TABLET PO SCH (22:07)
[2018-12-15] MEDS: ZOLPIDEM TARTRATE 5 MG TABLET PO PRN (22:07)
[2018-12-16 07:59] VITALS: BP 110/62
[2018-12-16] MEDS: OLANZAPINE 5 MG TABLET PO SCH ×2 (09:00→17:00)
[2018-12-16] MEDS: DIVALPROEX SODIUM 500 MG TABLET.DR PO SCH ×2 (09:30→09:50)
[2018-12-16] MEDS: busPIRone 5 MG TABLET PO SCH ×3 (09:49→17:22)
[2018-12-16] MEDS: ESTRADIOL 1 MG TABLET PO SCH (10:35)
[2018-12-16] MEDS: HYDROCODONE/APAP 5/325MG 1 EACH TABLET PO PRN ×2 (14:42→14:43)
[2018-12-16 16:00] VITALS: BP 115/76
[2018-12-16 20:00] VITALS: BP 140/78
[2018-12-16] MEDS: ATORVASTATIN 10 MG TABLET PO SCH (21:46)
[2018-12-16] MEDS: ZOLPIDEM TARTRATE 5 MG TABLET PO PRN (21:46)
[2018-12-17 08:00] VITALS: BP 108/72
[2018-12-17] MEDS: ESTRADIOL 1 MG TABLET PO SCH (08:51)
[2018-12-17] MEDS: OLANZAPINE 5 MG TABLET PO SCH ×2 (08:52→17:00)
[2018-12-17] MEDS: busPIRone 5 MG TABLET PO SCH ×3 (08:52→17:21)
[2018-12-17] MEDS: DIVALPROEX SODIUM 500 MG TABLET.DR PO SCH ×2 (08:52→21:08)
[2018-12-17] MEDS: HYDROCODONE/APAP 5/325MG 1 EACH TABLET PO PRN (13:03)
[2018-12-17 16:06] VITALS: BP 123/82
--- NOTE | 2018-12-17 18:36 | NUR ---
RN NOTE: PATIENT COMPLAINING OF PAIN. PRN NORCO GIVEN. PAIN REDUCED.
[2018-12-17 19:55] VITALS: BP 131/90
[2018-12-17] MEDS: ATORVASTATIN 10 MG TABLET PO SCH (21:08)
[2018-12-17] MEDS: ZOLPIDEM TARTRATE 5 MG TABLET PO PRN (21:08)
[2018-12-18 08:00] VITALS: BP 128/88
[2018-12-18] MEDS: DIVALPROEX SODIUM 500 MG TABLET.DR PO SCH ×2 (08:20→21:35)
[2018-12-18] MEDS: busPIRone 5 MG TABLET PO SCH ×5 (08:20→21:34)
[2018-12-18] MEDS: ESTRADIOL 1 MG TABLET PO SCH (08:21)
[2018-12-18] MEDS: OLANZAPINE 5 MG TABLET PO SCH (08:22)
[2018-12-18] MEDS: risperiDONE 1 MG TABLET PO SCH ×2 (10:10→17:04)
--- NOTE | 2018-12-18 11:04 | NUR ---
Christin Group Note: Pt attended group therapy on 12/18/18 at 9:30 discussing the topic of anger management for when they are in the hospital and for once they are discharged S: Pt stated, �I get angry a lot, but I only get angry and hostile towards myself. When people get me angry I turn around and just take it in. I get hurt a lot by other people and that makes me angry.� O: Pt was present during the group session and was engaged. Pt appeared alert and presented with an animated affect. Pt maintained appropriate eye contact and had a strong tone of voice. A: Pt expressed that she gets angry because other people hurt her feelings. She states that the hurt just comes out as anger and she is working on trying to let other people know when they are being hurtful in order to not take the anger out on herself. Pt will work on managing her anger by practicing visualization and grounding techniques to calm her down. Pt will also work on speaking up when someone does something hurtful towards her in order to manage her feelings before they get dysregulated. P: Pt will continue milieu treatment and medication stabilization. Addendum: 12/18/18 at 1111 by GENE ROJAS [facility] Group Note: Pt attended group therapy on 12/18/18 at 9:30 discussing the topic of anger management for when they are in the hospital and for once they are discharged S: Pt stated, �I get angry a lot, but I only get angry and hostile towards myself. When people get me angry I turn around and just take it in. I get hurt a lot by other people and that makes me angry.� O: Pt was present during the group session and was engaged. Pt appeared alert and presented with an animated affect. Pt maintained appropriate eye contact and had a strong tone of voice. A: Pt expressed that she gets angry because other people hurt her feelings. She states that the hurt just comes out as anger and she is working on trying to let other people know when they are being hurtful in order to not take the anger out on herself. Pt will work on managing her anger by practicing visualization and grounding techniques to calm her down. Pt will also work on speaking up when someone does something hurtful towards her in order to manage her feelings before they get dysregulated. P: Pt will continue milieu treatment and medication stabilization.
--- NOTE | 2018-12-18 11:10 | NUR ---
BOB faxed a referral to [facility] with attention to Jonathan and CJ to the fax number: [phone].
--- NOTE | 2018-12-18 11:11 | NUR ---
BOB faxed a referral to [facility] with attention to Danielle to the fax number: [phone].
--- NOTE | 2018-12-18 11:42 | NUR ---
ROWAN from ([phone]) contacted the SW and stated that the pt was accepted to their facility.
[2018-12-18] MEDS: HYDROCODONE/APAP 5/325MG 1 EACH TABLET PO PRN (12:38)
[2018-12-18 16:00] VITALS: BP 111/79
--- NOTE | 2018-12-18 18:49 | NUR ---
RN NOTE: PATIENT STATES SHE FEELS CONSTIPATED. PRN MOM GIVEN
[2018-12-18 19:32] VITALS: BP 126/76
[2018-12-18] MEDS: ATORVASTATIN 10 MG TABLET PO SCH (21:34)
[2018-12-18] MEDS: ZOLPIDEM TARTRATE 5 MG TABLET PO PRN (21:35)
[2018-12-19 08:00] VITALS: BP 109/67
[2018-12-19] MEDS: risperiDONE 1 MG TABLET PO SCH ×2 (08:54→16:58)
[2018-12-19] MEDS: ESTRADIOL 1 MG TABLET PO SCH (08:54)
[2018-12-19] MEDS: DIVALPROEX SODIUM 500 MG TABLET.DR PO SCH ×2 (08:55→21:29)
[2018-12-19] MEDS: busPIRone 5 MG TABLET PO SCH ×4 (08:55→21:29)
--- NOTE | 2018-12-19 14:20 | NUR ---
SW conducted a substance abuse intervention with the pt regarding her alcohol and drug use.
--- NOTE | 2018-12-19 15:36 | NUR ---
Group Note: SW encouraged pt to attend group therapy on 12/19/18 at 2pm discussing discharge planning but pt stated she wanted to stay in her room and did not feel like socializing with others.
[2018-12-19 16:00] VITALS: BP 149/98
--- NOTE | 2018-12-19 19:26 | NUR ---
GPS RN NOTE, RECEIVED PATIENT AWAKE AND IN BED, NO S/S OR COMPLAINTS OF PAIN AT THIS TIME. PATIENT IS DISPLAYING NO S/S OF APPARENT DISTRESS AT THIS TIME. PATIENT BREATHING IS UNLABORED WITH EQUAL RISE AND FALL OF THE CHEST. PATIENT IS ALERT AND ORIENTED X 3 ON ROOM AIR WITH A SPO2 OF 95 %. PATIENT IS MED COMPLAINT, DISORGANIZED, BRIGHT, COOPERATIVE, AND NEEDS REORIENTATION. PATIENT DENIES SUICIDE AND HOMICIDAL IDEATIONS AT THIS TIME. PATIENT ASSISTED WITH TURNING AND REPOSITIONING Q2HR AND PRN FOR COMFORT AND CIRCULATION. PATIENT HAS NO NEEDS AT THIS TIME. PATIENT EDUCATED ON THE USE OF THE CALL MARTINEZ. PATIENT BED SIDE RAILS ARE UP X 2 FOR SAFETY, BED IS LOCKED, AND LOW WILL CONTINUE TO MONITOR AND MAINTAIN SAFETY.
[2018-12-19 20:23] VITALS: BP 132/80
[2018-12-19] MEDS: ATORVASTATIN 10 MG TABLET PO SCH (21:29)
[2018-12-19] MEDS: ZOLPIDEM TARTRATE 5 MG TABLET PO PRN (21:34)
--- NOTE | 2018-12-19 21:34 | NUR ---
GPS RN NOTE, PATIENT HAS A COMPLAINT OF NOT BEING ABLE TO SLEEP AND IS REQUESTING AMBIEN AT THIS TIME. PATIENT VITAL SIGNS ARE STABLE. GAVE AMBIEN 5 MG PO HS ORDERED. WILL REASSESS FOR INSOMNIA AND I WILL CONTINUE TO MONITOR THIS PATIENT.
[2018-12-20 08:00] VITALS: BP 104/66
[2018-12-20] MEDS: ESTRADIOL 1 MG TABLET PO SCH (08:11)
[2018-12-20] MEDS: busPIRone 5 MG TABLET PO SCH ×4 (08:11→21:08)
[2018-12-20] MEDS: risperiDONE 1 MG TABLET PO SCH ×2 (08:11→16:07)
[2018-12-20] MEDS: DIVALPROEX SODIUM 500 MG TABLET.DR PO SCH ×2 (08:11→21:08)
[2018-12-20] MEDS: hydrOXYzine PAMOATE 25 MG CAPSULE PO PRN ×2 (09:47→18:50)
--- NOTE | 2018-12-20 09:49 | NUR ---
GPS RN NOTE PT REQUESTED FOR VISTARIL PRN FOR ANXIETY. GIVEN TO AND TAKEN BY PATIENT. WILL CONTINUE TO MONITOR FOR SAFETY AND BEHAVIOR.
[2018-12-20] MEDS: ACETAMINOPHEN 325 MG TABLET PO PRN (11:08)
--- NOTE | 2018-12-20 11:51 | NUR ---
SW spoke to the pt about the two placement facilities that have accepted her and she stated that she would like to go to [facility] ([facility]). SW stated that she would inform the placement to have a bed ready for her by Tuesday.
--- NOTE | 2018-12-20 11:55 | NUR ---
BOB contacted Yesenia ([phone]) from [facility] and she stated that that pt will be discharged on Tuesday and that a bed will need to be made ready. Yesenia stated that can be arranged.
[2018-12-20 16:00] VITALS: BP 107/69
[2018-12-20 20:21] VITALS: BP 106/73
[2018-12-20] MEDS: ATORVASTATIN 10 MG TABLET PO SCH (21:09)
[2018-12-20] MEDS: ZOLPIDEM TARTRATE 5 MG TABLET PO PRN (21:09)
[2018-12-21 08:00] VITALS: BP 127/84
[2018-12-21] MEDS: ESTRADIOL 1 MG TABLET PO SCH (08:40)
[2018-12-21] MEDS: DIVALPROEX SODIUM 500 MG TABLET.DR PO SCH ×2 (08:40→21:28)
[2018-12-21] MEDS: busPIRone 5 MG TABLET PO SCH ×4 (08:40→21:28)
[2018-12-21] MEDS: risperiDONE 1 MG TABLET PO SCH ×2 (08:40→16:21)
[2018-12-21] MEDS: hydrOXYzine PAMOATE 25 MG CAPSULE PO PRN (09:08)
[2018-12-21 16:00] VITALS: BP 117/82
[2018-12-21 20:00] VITALS: BP 129/84
[2018-12-21] MEDS: ATORVASTATIN 10 MG TABLET PO SCH (21:28)
[2018-12-21] MEDS: ZOLPIDEM TARTRATE 5 MG TABLET PO PRN (21:29)
[2018-12-22 08:00] VITALS: BP 134/87
[2018-12-22] MEDS: busPIRone 5 MG TABLET PO SCH ×2 (08:05→12:19)
[2018-12-22] MEDS: ESTRADIOL 1 MG TABLET PO SCH (08:05)
[2018-12-22] MEDS: risperiDONE 1 MG TABLET PO SCH (08:06)
[2018-12-22] MEDS: DIVALPROEX SODIUM 500 MG TABLET.DR PO SCH (08:06)
--- NOTE | 2018-12-22 08:43 | NUR ---
DR. HERNANDEZ GAVE AN ORDER TO D/C HOLD AND D/C TO [facility], TO CONTINUE SAME MEDS INCLUDING PRN AND TO FOLLOW UP WITH PSYCH AND MEDICAL DOCTORS. PT. WITHOUT DISTRESS, DENIES SUICIDAL AND HOMICIDAL. BELONGINGS READY AND DISCHARGE PAPERS READY.
[2018-12-22] MEDS: hydrOXYzine PAMOATE 25 MG CAPSULE PO PRN (10:09)
--- NOTE | 2018-12-22 13:12 | NUR ---
Charly made aware made of the discharge and reconciled meds. Report given to Marty over the facility.
--- NOTE | 2018-12-22 14:04 | NUR ---
Discharge Note: Pt was discharged to [facility] [place] [address] [place] [address]; . Pt was transported via [facility] at 2PM. Upon discharge, the pt presented with a euthymic mood and presented with a calm affect. Pt denied both suicidal and homicidal ideation as well as visual and auditory hallucinations. Pt was provided with three substance abuse and two smoking cessation referrals. Pt will follow up with her treatment team regarding substance use. Pt will be under the care of her psychiatrist, Dr. Gonzalez, located at [address] [facility] [address], [place] [address]; and her neurourologist, Dr. Smyth, located at [address] [facility] [address], [place] [address]; .
--- NOTE | 2018-12-22 14:05 | NUR ---
Pt. left the unit via ambulance with belongings and transported via a gurney. Left without distress and on stable condition. V/S taken: BP 144/83, CA 104, RR 18, temp 98.0 and oxygen sat 96%.
--- NOTE | 2019-01-05 11:28 | NUR ---
15 Day Substance Abuse Follow Up: Pt is exempt from the substance abuse follow up due to her discharge to a custodial facility called [facility].
== END 2018-12-22 14:05 | DRG 885 ==
LOC: ER 17:04 → GPS 20:06
PROVIDERS: ADMIT Psychiatry & Neurology Psychiatry; ATTEND Registered Nurse
DX: F31.64 Bipolar disorder, current episode mixed, severe, with psychotic features (principal); R45.851 Suicidal ideations; F41.9 Anxiety disorder, unspecified; F15.10 Other stimulant abuse, uncomplicated; G89.29 Other chronic pain; M54.9 Dorsalgia, unspecified; Z88.0 Allergy status to penicillin; I10 Essential (primary) hypertension; E66.9 Obesity, unspecified; Z68.31 Body mass index [BMI] 31.0-31.9, adult; M17.11 Unilateral primary osteoarthritis, right knee; E78.5 Hyperlipidemia, unspecified; R56.9 Unspecified convulsions
CPT/HCPCS: 36415; 80048-TC; 80053-TC; 80061-TC; 80076-TC; 80164-TC; 80305; 81000-TC; 85025-TC; 87081-TC; 97116-TC; 97530-TC; G0480; Q0177